=== PATIENT | female | born 1995 | race African-American/Black ===

== ENCOUNTER 2017-05-29 14:21 | Emergency (ER) | payer BC ==
[~2017-05-29] VITALS: Ht 170.2 cm; Wt 64.0 kg
[2017-05-29 14:27] VITALS: TEMP 37.5; Ht 170.2 cm; Wt 64.0 kg
[2017-05-29] MEDS: SODIUM CHLORIDE 0.9% 1000ML 1,000 ML IV SCH ×3 (14:45→15:22)
[2017-05-29] MEDS ORDERED: BCPILLS PO (14:52)
--- NOTE | 2017-05-29 14:53 | EMERGENCY ROOM VISIT NOTE ---
History First contact with patient: 14:23 Chief Complaint: FLU LIKE SX Stated Complaint: NEAR SYNCOPE History of Present Illness The patient is a 21 year old female who was brought to the Emergency Room by ambulance due to a pre-syncopal episode. This occurred while she was sitting down in a meeting, and states that she felt her ears ringing and her body "felt light" which is what generally happens before she faints, so she left the room and was standing against the wall in the hallway, where she then collapsed onto the floor. She denies LOC, states she did not hit her head, and that there was no seizure-like activity. She has been unwell since Sunday, with general body aches, fever, chills, malaise, sore throat, rhinorrhea, cough productive of green sputum, but no blood , and nausea. She states she has occasional chest pain with coughing, but not otherwise, and denies shortness of breath, palpitations, vomiting, abdominal pain, or headaches. She states she has not had much of an appetite since these symptoms started. She has no past medical history, and denies being a smoker, or the use of alcohol or recreational drug. Her only medical is the OCP, and she states she was meant to start her new packet yesterday, but did not. Review of Systems See HPI for pertinent positives & negatives. A total of 10 systems reviewed and were otherwise negative. Past Medical/Surgical History Medical Problems: (1) Hypokalemia (2) No Known Active Medical Problems (3) Non-cardiac chest pain (4) Non-cardiac chest pain (5) Stress-related problem (6) Stress-related problem (7) Toe pain Social History Smoking Status: Never Smoker Alcohol Use: none Drug Use: none Marital Status: single Occupation Status: student Current/Historical Medications Scheduled Control Pills ( Control Pills), 1 TAB PO DAILY Physical Exam Vital Signs Date Time Temp Pulse Resp B/P (MAP) Pulse Ox O2 Delivery O2 Flow Rate FiO2 05/29/17 16:25 105 141/86 103 143/94 116 147/87 05/29/17 14:27 37.5 118 20 136/84 99 Room Air Physical Exam HEENT: Head - normocephalic and atraumatic. Pupils are equal, round, and reactive to light. Extraocular eye muscles are intact and sclera are anicteric. Ears - bilaterally patent canals with noninjected tympanic membranes and no evidence of hemotympanum. Nose - moist nasal mucosa without discharge. Mouth - moist buccal mucosa. Oropharynx is erythematous with exudate. Tonsils absent. Neck: Supple; no JVD, nuchal rigidity, bilateral submandibular lymphadenopathy, or auscultated bruits. Heart: Regular rate and rhythm. There is a normal S1 and S2 with no murmurs, clicks, or gallops appreciated. Lungs: Clear to auscultation bilaterally with no wheezes, rales, or rhonchi. Abdomen: Soft, completely nontender, nondistended, with good bowel sounds. There are no palpable pulsatile masses or hepatosplenomegaly. There is no guarding, rigidity, or rebound noted. Extremities: No evidence of cyanosis, clubbing, or edema. There are easily palpable peripheral pulses. Neuro:The patient is awake and alert, oriented to day, time, and place. Muscle strength is 5/5 in all 4 extremities. The patient has equal waste and batting waste chopper strength and equal pedal push and pull. There are no cerebellar signs. Medical Decision & Procedures ER Provider Diagnostic Interpretation: CHEST 2 VIEWS ROUTINE CLINICAL HISTORY: Productive cough. COMPARISON STUDY: Chest radiograph October 10, 2015. FINDINGS: Lung volumes are normal. No pneumothorax or pleural effusion is present. Pulmonary vascularity is normal. Lungs are clear. Cardiomediastinal silhouette is normal. IMPRESSION: No acute cardiopulmonary findings. Laboratory Results 05/29/17 15:08 Red Blood Count 4.49, Mean Corpuscular Volume 81.7, Mean Corpuscular Hemoglobin 26.1, Mean Corpuscular Hemoglobin Concent 31.9, Mean Platelet Volume 9.8, Neutrophils (%) (Auto) 58.9, Lymphocytes (%) (Auto) 29.8, Monocytes (%) (Auto) 10.5, Eosinophils (%) (Auto) 0.2, Basophils (%) (Auto) 0.2, Neutrophils # (Auto ) 2.99, Lymphocytes # (Auto) 1.51, Monocytes # (Auto) 0.53, Eosinophils # (Auto ) 0.01, Basophils # (Auto) 0.01 05/29/17 15:08 Test 05/29/17 15:01 05/29/17 15:08 05/29/17 15:20 Influenza Type A Antigen POS for Influ A (NEG) Influenza Type B Antigen Neg for Influ B (NEG) White Blood Count 5.07 K/uL (4.8-10.8) Red Blood Count 4.49 M/uL (4.2-5.4) Hemoglobin 11.7 g/dL (12.0-16.0) Hematocrit 36.7 % (37-47) Mean Corpuscular Volume 81.7 fL (80-100) Mean Corpuscular Hemoglobin 26.1 pg (25-34) Mean Corpuscular Hemoglobin Concent 31.9 g/dl (32-36) Platelet Count 292 K/uL (130-400) Mean Platelet Volume 9.8 fL (7.4-10.4) Neutrophils (%) (Auto) 58.9 % Lymphocytes (%) (Auto) 29.8 % Monocytes (%) (Auto) 10.5 % Eosinophils (%) (Auto) 0.2 % Basophils (%) (Auto) 0.2 % Neutrophils # (Auto) 2.99 K/uL (1.4-6.5) Lymphocytes # (Auto) 1.51 K/uL (1.2-3.4) Monocytes # (Auto) 0.53 K/uL (0.11-0.59) Eosinophils # (Auto) 0.01 K/uL (0-0.5) Basophils # (Auto) 0.01 K/uL (0-0.2) RDW Standard Deviation 45.8 fL (36.4-46.3) RDW Coefficient of Variation 15.3 % (11.5-14.5) Immature Granulocyte % (Auto) 0.4 % Immature Granulocyte # (Auto) 0.02 K/uL (0.00-0.02) Anion Gap 8.0 mmol/L (3-11) Est Creatinine Clear Calc Drug Dose 93.5 ml/min Estimated GFR () 103.1 Estimated GFR (Non- 88.9 BUN/Creatinine Ratio 9.6 (10-20) Calcium Level 8.8 mg/dl (8.5-10.1) Thyroid Stimulating Hormone (TSH) 0.171 uIu/ml (0.300-4.500) Monoscreen NEG (NEG) Urine Color YELLOW Urine Appearance CLEAR (CLEAR) Urine pH 6.0 (4.5-7.5) Urine Specific [place] 1.009 (1.000-1.030) Urine Protein NEG (NEG) Urine Glucose (UA) NEG (NEG) Urine Ketones NEG (NEG) Urine Occult Blood NEG (NEG) Urine Nitrite NEG (NEG) Urine Bilirubin NEG (NEG) Urine Urobilinogen NEG (NEG) Urine Leukocyte Esterase NEG (NEG) Urine Test NEG (NEG) Medications Administered Medications (Trade) Dose Ordered Sig/Radhika Route Start Time Stop Time Status Last Admin Dose Admin Sodium Chloride 1,000 ml @ 999 mls/hr Q1H1M IV 05/29/17 14:45 06/28/17 14:44 05/29/17 15:22 999 MLS/HR ED Course 14:28: The patient was seen in room A3 14:40: The case was discussed with Dr. Valdez 14:45: The patient was seen with Dr. Valdez 14:59: Rapid strep was negative. NS bolus ordered 15:25: Patient reassessed, no complaints at this time. 15:37: Patient tested positive for influenza A. Isolation precautions started at this time 16:27: Patient reassessed. I explained that she tested positive for influenza, but that she is outside the window for Tamiflu treatment. I also told her that her TSH was low (0.171) and advised follow up with her PCP regarding further evaluation. She states she has no personal or family history of thyroid disease. She states she does not have a PCP here, but is agreeable to seeing someone new. Medical Decision The patient is a 21 year old female who was brought to the Emergency Room by ambulance due to a pre-syncopal episode, on a background of being unwell since Sunday, with productive cough, fever, chills, sore throat, rhinorrhea and nausea. Differentials include viral illness, strep throat, infectious mononucleosis, influenza, pneumonia. She tested positive for Influenza A. She was counselled on the fact that she was outside the window for Tamiflu treatment, and told to drink plenty of fluids and rest. Her TSH was found to be low at 0.171. An appointment was made for her to follow up with a PCP later this week to further investigate this, as well as ensure her symptoms were resolving. Impression Primary Impression: Influenza A Departure Information Dispostion Home / Self-Care Referrals [facility] (PCP) Patient Instructions My [facility] Additional Instructions You were diagnosed with Influenza, which is the flu. Unfortunately, you were outside the window for intervention with medication. Please rest, drink plenty of fluids, and use tylenol or ibuprofen to help alleviate your symptoms. If you find your symptoms are worsening, you develop chest pain, or shortness of breath , or have another episode of fainting or almost fainting, please seek medical attention. As well, while you were here, your thyroid stimulating hormone was found to be low, and we recommend following up with your primary care provider to further investigate this. Resident Tracking Resident Involvement: Resident Care Provided Care Provided: Adult ED
[2017-05-29 15:42] LABS: BASO % 0.2 %; BASO ABS # 0.01 K/uL (0-0.2); COMPLETE YES; EOS % 0.2 %; HEMATOCRIT 36.7 % (37-47); IG% 0.4 %; LYMPH % 29.8 %; LYMPH ABS # 1.51 K/uL (1.2-3.4); MEAN CELL VOLUME 81.7 fL (80-100); MEAN CORPUSCULAR HEMOGLOBIN 26.1 pg (25-34); MEAN CORPUSCULAR HGB CONC 31.9 g/dl (32-36); MEAN PLATELET VOLUME 9.8 fL (7.4-10.4); MONO % 10.5 %; NEUT % 58.9 %; PLATELET COUNT 292 K/uL (130-400); RED BLOOD COUNT 4.49 M/uL (4.2-5.4); WHITE BLOOD COUNT 5.07 K/uL (4.8-10.8)
[2017-05-29 15:49] LABS: BUN/CREATININE RATIO 9.6 (10-20); CALCIUM 8.8 mg/dl (8.5-10.1); CREATININE 0.91 mg/dl (0.60-1.20); POTASSIUM 3.4 mmol/L (3.5-5.1)
[2017-05-29 15:49] LABS: URINE APPEARANCE CLEAR (CLEAR); URINE BILIRUBIN NEG (NEG); URINE COLOR YELLOW; URINE NITRITE NEG (NEG); URINE SPECIFIC GRAVITY 1.009 (1.000-1.030); UROBILINOGEN NEG (NEG)
[2017-05-29 15:52] LABS: PREG INTERNAL NEGATIVE QC NEG CLEAR BACKGROUND; PREG INTERNAL POSITIVE QC POS CONTROL LINE
[2017-05-29 15:59] LABS: THYROID STIMULATING HORMONE 0.171 uIu/ml (0.300-4.500)
[2017-05-29 16:00] LABS: MANUAL MICROSCOPIC REQUIRED? NO; REVIEW REQ? NO
--- NOTE | 2017-05-29 16:23 | DIAGNOSTIC IMAGING REPORT ---
CHEST 2 VIEWS ROUTINE CLINICAL HISTORY: Productive cough. COMPARISON STUDY: Chest radiograph October 10, 2015. FINDINGS: Lung volumes are normal. No pneumothorax or pleural effusion is present. Pulmonary vascularity is normal. Lungs are clear. Cardiomediastinal silhouette is normal. IMPRESSION: No acute cardiopulmonary findings. Electronically signed by: Johnathon Addison M.D. 05/29/2017 4:21 PM Dictated Date/Time: 05/29/2017 4:21 PM
--- NOTE | 2017-05-29 16:50 | EMERGENCY ROOM VISIT NOTE ---
History Report prepared by [place]: Tracie Alfonso Under the Supervision of: Dr. Dwight Valdez M.D. First contact with patient: 14:23 Chief Complaint: FLU LIKE SX Stated Complaint: NEAR SYNCOPE History of Present Illness The patient is a 21 year old female who presents to the Emergency Room with complaints of an episode of near syncope occurring [employer]. The patient states that she has felt generally unwell with flu-like symptoms for the past 3 days. She reports subjective fevers, chills, sore throat, nausea, rhinorrhea, and a productive cough. She has some chest pain with coughing but otherwise denies any chest pain. Today the patient was in a meeting at work when her ears started ringing and she felt like she was going to pass out. She leaned against a wall and just slid down the wall onto the ground. The patient denies any LOC. She denies any seizure-like activity. The patient denies headache, rash, shortness of breath, abdominal pain, and diarrhea. She denies any sick contacts. She reports that she has not been eating much lately. The patient was brought to the ED by ambulance. Source of History: patient Onset: [employer] Position: other (global) Quality: other (near syncope) Timing: other (episode) Modifying Factors (Relieving): other (time) Associated Symptoms: + fevers, + chills, + sorethroat, + cough, + nausea, No LOC, No headache, No SOB, No abdominal pain, No diarrhea, No rash Review of Systems See HPI for pertinent positives & negatives. A total of 10 systems reviewed and were otherwise negative. Past Medical & Surgical Medical Problems: (1) Hypokalemia (2) No Known Active Medical Problems (3) Non-cardiac chest pain (4) Non-cardiac chest pain (5) Stress-related problem (6) Stress-related problem (7) Toe pain Family History No pertinent history stated. Social History Smoking Status: Never Smoker Alcohol Use: none Drug Use: none Marital Status: single Occupation Status: student Current/Historical Medications Scheduled Control Pills ( Control Pills), 1 TAB PO DAILY Allergies Coded Allergies: Amoxicillin (Verified Adverse Reaction, Mild, diarrhea, 05/29/17) Clavulanic Acid (Verified Adverse Reaction, Mild, diarrhea, 05/29/17) Physical Exam Vital Signs Date Time Temp Pulse Resp B/P (MAP) Pulse Ox O2 Delivery O2 Flow Rate FiO2 05/29/17 16:25 105 141/86 103 143/94 116 147/87 05/29/17 14:27 37.5 118 20 136/84 99 Room Air Physical Exam Constitutional: Vital signs reviewed. Eyes: Pupils are equal round reactive to light. Conjunctiva are noninjected. ENT: Mild erythema to posterior oropharynx. Mucous membranes are moist. Neck supple without meningeal signs. Respiratory: Clear to auscultation bilaterally. Breath sounds are equal bilaterally. Cardiovascular: Tachycardic rate and regular rhythm. No rubs or gallops. GI: Soft, nondistended and nontender. Bowel sounds are present. No organomegaly. Musculoskeletal: No peripheral edema. No lower extremity tenderness. Integumentary: No cyanosis. Neurological: The patient is awake and alert. No focal deficits. Psychiatric: Normal affect. Medical Decision & Procedures ER Provider Diagnostic Interpretation: Radiology results as stated below per my review and the radiologist's interpretation: CHEST 2 VIEWS ROUTINE CLINICAL HISTORY: Productive cough. COMPARISON STUDY: Chest radiograph October 10, 2015. FINDINGS: Lung volumes are normal. No pneumothorax or pleural effusion is present. Pulmonary vascularity is normal. Lungs are clear. Cardiomediastinal silhouette is normal. IMPRESSION: No acute cardiopulmonary findings. Electronically signed by: Johnathon Addison M.D. 05/29/2017 4:21 PM Dictated Date/Time: 05/29/2017 4:21 PM Laboratory Results 05/29/17 15:08 Red Blood Count 4.49, Mean Corpuscular Volume 81.7, Mean Corpuscular Hemoglobin 26.1, Mean Corpuscular Hemoglobin Concent 31.9, Mean Platelet Volume 9.8, Neutrophils (%) (Auto) 58.9, Lymphocytes (%) (Auto) 29.8, Monocytes (%) (Auto) 10.5, Eosinophils (%) (Auto) 0.2, Basophils (%) (Auto) 0.2, Neutrophils # (Auto ) 2.99, Lymphocytes # (Auto) 1.51, Monocytes # (Auto) 0.53, Eosinophils # (Auto ) 0.01, Basophils # (Auto) 0.01 05/29/17 15:08 Test 05/29/17 15:01 05/29/17 15:08 05/29/17 15:20 Influenza Type A Antigen POS for Influ A (NEG) Influenza Type B Antigen Neg for Influ B (NEG) White Blood Count 5.07 K/uL (4.8-10.8) Red Blood Count 4.49 M/uL (4.2-5.4) Hemoglobin 11.7 g/dL (12.0-16.0) Hematocrit 36.7 % (37-47) Mean Corpuscular Volume 81.7 fL (80-100) Mean Corpuscular Hemoglobin 26.1 pg (25-34) Mean Corpuscular Hemoglobin Concent 31.9 g/dl (32-36) Platelet Count 292 K/uL (130-400) Mean Platelet Volume 9.8 fL (7.4-10.4) Neutrophils (%) (Auto) 58.9 % Lymphocytes (%) (Auto) 29.8 % Monocytes (%) (Auto) 10.5 % Eosinophils (%) (Auto) 0.2 % Basophils (%) (Auto) 0.2 % Neutrophils # (Auto) 2.99 K/uL (1.4-6.5) Lymphocytes # (Auto) 1.51 K/uL (1.2-3.4) Monocytes # (Auto) 0.53 K/uL (0.11-0.59) Eosinophils # (Auto) 0.01 K/uL (0-0.5) Basophils # (Auto) 0.01 K/uL (0-0.2) RDW Standard Deviation 45.8 fL (36.4-46.3) RDW Coefficient of Variation 15.3 % (11.5-14.5) Immature Granulocyte % (Auto) 0.4 % Immature Granulocyte # (Auto) 0.02 K/uL (0.00-0.02) Anion Gap 8.0 mmol/L (3-11) Est Creatinine Clear Calc Drug Dose 93.5 ml/min Estimated GFR () 103.1 Estimated GFR (Non- 88.9 BUN/Creatinine Ratio 9.6 (10-20) Calcium Level 8.8 mg/dl (8.5-10.1) Thyroid Stimulating Hormone (TSH) 0.171 uIu/ml (0.300-4.500) Monoscreen NEG (NEG) Urine Color YELLOW Urine Appearance CLEAR (CLEAR) Urine pH 6.0 (4.5-7.5) Urine Specific [place] 1.009 (1.000-1.030) Urine Protein NEG (NEG) Urine Glucose (UA) NEG (NEG) Urine Ketones NEG (NEG) Urine Occult Blood NEG (NEG) Urine Nitrite NEG (NEG) Urine Bilirubin NEG (NEG) Urine Urobilinogen NEG (NEG) Urine Leukocyte Esterase NEG (NEG) Urine Test NEG (NEG) Laboratory results as reviewed by me. Medications Administered Medications (Trade) Dose Ordered Sig/Radhika Route Start Time Stop Time Status Last Admin Dose Admin Sodium Chloride 1,000 ml @ 999 mls/hr Q1H1M IV 05/29/17 14:45 06/28/17 14:44 05/29/17 15:22 999 MLS/HR ECG Indication: syncope Rate (beats per minute): 107 Rhythm: sinus tachycardia Findings: no ectopy, other (no QT prolongation) ED Course 1423: The patient was evaluated in room A3. A complete history and physical exam was performed. 1445: NSS 1000 ml @ 999 mls/hr IV 1639: I reassessed the patient at this time. She is feeling better and resting comfortably. I discussed the results and treatment plan with the patient. I answered all pertaining questions that she had. She expressed understanding and verbalized agreement. The patient will be discharged home. Medical Decision This is a 21-year-old female who presents with flulike symptoms and near syncope. Differential diagnosis includes influenza, viral syndrome, mononucleosis, strep pharyngitis, metabolic derangement, orthostatic hypotension , dehydration. I did perform a limited focused review of portions of the patient's old chart on the electronic medical record. The patient has had no recent pertinent visits to this hospital. I did evaluate the patient as noted above. IV access was established. I did order and personally review the patient's 12-lead EKG and chest x-ray as described above. EKG does not show any evidence of preexcitation, QT prolongation or ectopy. Her chest x-ray does not show any evidence of pneumonia. Rapid strep test is negative. I did order and review the patient's blood work as noted in the electronic medical record. Flu test is positive for influenza A. She was given normal saline IV. She was informed of her test results. Arrangements were made for outpatient follow up in the patient was discharged in good condition. Resident Physician Supervision Note: I did evaluate and examine this patient myself. I did guide management for the patient. I agree with the resident's Dr. Marcos Quarles assessment as discussed. Please see the resident's dictation for further details. Medication Reconcilliation Current Medication List: was personally reviewed by me Blood Pressure Screening Patient's blood pressure: Elevated blood pressure Blood pressure disposition: Elevated BP felt to be situational Impression Primary Impression: Influenza A Additional Impression: Near syncope Scribe Attestation The scribe's documentation has been prepared under my direct and personally reviewed by me in its entirety. I confirm that the note above accurately reflects all work, treatment, procedures, and medical decision making performed by me. Departure Information Dispostion Home / Self-Care Referrals [facility] (PCP) Patient Instructions My [facility] Problem Qualifiers
[2017-05-29 17:35] VITALS: BP 139/92; PULSE 112; O2SAT 99
== END 2017-05-29 17:36 | disposition home or self-care (01) ==
LOC: EDBD 14:21 → C.EDA 14:22
DX: J11.1 Influenza due to unidentified influenza virus with other respiratory manifestations (principal); R55 Syncope and collapse; R00.0 Tachycardia, unspecified; Z88.1 Allergy status to other antibiotic agents; Z88.8 Allergy status to other drugs, medicaments and biological substances

== ENCOUNTER 2017-09-06 05:47 | Emergency (ER) | payer BC ==
[~2017-09-06] VITALS: Ht 177.8 cm; Wt 66.0 kg
[~2017-09-06 05:47] MED LIST: BCPILLS PO
[2017-09-06 05:56] VITALS: TEMP 36.9; Ht 177.8 cm; Wt 66.0 kg
--- NOTE | 2017-09-06 06:02 | EMERGENCY ROOM VISIT NOTE ---
History Report prepared by Clayton: Chris Peerz Under the Supervision of: Dr. Bertha Joshi D.O. First contact with patient: 05:49 Chief Complaint: SYNCOPE (NEAR SYNCOPE) Stated Complaint: SYNCOPE History of Present Illness The patient is a 21 year old female who presents to the Emergency Room with complaints of an episode of syncope occurring this morning. The patient states that she woke up at around 0500 this morning to take a hot shower. She notes that that last thing she remembers was being in the shower, turning off the water, and that she hit the left side of her head when she passed out. She reports that she does not know what she hit her head on. The patient states that her episode may be caused by her control. She notes that when she does not get enough sleep while on control, she becomes nauseous when she wakes up. She notes that the side effects have not caused her to lose consciousness in the past but she believes that it is possible. She reports that she has passed out in the past. The patient states that she knew that she was going to pass out tonight, but did not think that it would happen as quickly as it did. She also complains of diarrhea after she passed out, but denies any abdominal pain. She notes that her last period was 6 weeks ago. Source of History: patient Onset: this morning Position: other (global) Quality: other (syncope) Timing: other (an episode) Associated Symptoms: + diarrhea, No abdominal pain Review of Systems See HPI for pertinent positives & negatives. A total of 10 systems reviewed and were otherwise negative. Past Medical & Surgical Medical Problems: (1) Hypokalemia (2) Iron deficiency anemia (3) Non-cardiac chest pain (4) Non-cardiac chest pain (5) Stress-related problem (6) Stress-related problem (7) Toe pain Family History No pertinent family history stated. Social History Smoking Status: Never Smoker Alcohol Use: none Drug Use: none Marital Status: single Housing Status: lives with roommate Occupation Status: student Current/Historical Medications Scheduled Control Pills ( Control Pills), 1 TAB PO DAILY Allergies Coded Allergies: Amoxicillin (Verified Adverse Reaction, Mild, diarrhea, 05/29/17) Clavulanic Acid (Verified Adverse Reaction, Mild, diarrhea, 05/29/17) Physical Exam Vital Signs Date Time Temp Pulse Resp B/P (MAP) Pulse Ox O2 Delivery O2 Flow Rate FiO2 09/06/17 05:56 36.9 99 20 121/63 100 Room Air 09/06/17 05:55 100 Physical Exam HEENT: Head - normocephalic and atraumatic Pupils are equal, round, and reactive to light. Extraocular eye muscles are intact, and sclera are anicteric. There is no obvious traumatic head injury to her forehead or temporal region where she believes she struck her head. Nose - moist nasal mucosa without discharge. Mouth - moist buccal mucosa. Oropharynx is nonerythematous and there is no tonsillar exudate or edema noted. Neck: Supple; no JVD, nuchal rigidity, cervical lymphadenopathy, or auscultated bruits. Heart: Regular rate and rhythm. There is a normal S1 and S2 with no murmurs, clicks, or gallops appreciated. Lungs: Clear to auscultation bilaterally with no wheezes, rales, or rhonchi. Abdomen: Soft, completely nontender, nondistended, with good bowel sounds. There are no palpable pulsatile masses or hepatosplenomegaly. There is no guarding, rigidity, or rebound noted. Extremities: No evidence of cyanosis, clubbing, or edema. There are easily palpable peripheral pulses. Skin: warm and dry with good turgor and no rashes. Neuro: The patient is fully awake and alert. She is easily able follow commands. Medical Decision & Procedures Laboratory Results 09/06/17 06:05 09/06/17 06:05 Test 09/06/17 06:05 09/06/17 06:26 Red Blood Count 3.98 M/uL (4.2-5.4) Mean Corpuscular Volume 84.9 fL (80-100) Mean Corpuscular Hemoglobin 27.4 pg (25-34) Mean Corpuscular Hemoglobin Concent 32.2 g/dl (32-36) RDW Standard Deviation 50.7 fL (36.4-46.3) RDW Coefficient of Variation 16.2 % (11.5-14.5) Mean Platelet Volume 9.6 fL (7.4-10.4) Anion Gap 8.0 mmol/L (3-11) Est Creatinine Clear Calc Drug Dose 126.6 ml/min Estimated GFR () 136.8 Estimated GFR (Non- 118.0 BUN/Creatinine Ratio 9.6 (10-20) Calcium Level 8.6 mg/dl (8.5-10.1) Urine Color DK YELLOW Urine Appearance CLOUDY (CLEAR) Urine pH 5.5 (4.5-7.5) Urine Specific [place] 1.026 (1.000-1.030) Urine Protein 2+ (NEG) Urine Glucose (UA) NEG (NEG) Urine Ketones TRACE (NEG) Urine Occult Blood NEG (NEG) Urine Nitrite NEG (NEG) Urine Bilirubin NEG (NEG) Urine Urobilinogen NEG (NEG) Urine Leukocyte Esterase NEG (NEG) Urine WBC (Auto) 5-10 /hpf (0-5) Urine RBC (Auto) 0-4 /hpf (0-4) Urine Hyaline Casts (Auto) 5-10 /lpf (0-5) Urine Epithelial Cells (Auto) >30 /lpf (0-5) Urine Bacteria (Auto) 2+ (NEG) Urine Renal Epithelial Cells /lpf (0-5) Urine Pathogenic Casts 0-3 GRANULAR CASTS /lpf (0) Urine Mucus PRESENT (NONE PRSENT) Urine Test NEG (NEG) Laboratory results per my review. ECG Indication: syncope Rate (beats per minute): 92 Rhythm: normal sinus Findings: no acute ischemic change, no ectopy ED Course 0553: Past medical records reviewed. The patient was evaluated in room A3. A complete history and physical exam was performed. A twelve-lead EKG was obtained as described above. Labs were drawn as above. 0600: The patient's electrocardiogram was interpreted by me. 0643: I reevaluated the patient. She is drinking water. She became tearful because she does not remember what happened or how long she was out. She states that she has a history of iron deficiency anemia. She notes that she had stopped taking her iron some time ago because of the constipation. She also stopped eating meat 1 year ago. 0655: Upon reevaluation, the patient is stable. I discussed findings and results with her. The patient asked if I was going to get a CAT scan of her brain since she struck her head. I reviewed the risks and benefits of CAT scanning with regards to radiation. I explained to the patient that she had no signs of trauma to her head and no altered mental status at this time. However , she was warned that if she developed an increasing headache, vomiting, visual changes, or any neurological symptoms, she would need to return to the emergency department for CT scanning. She verbalized agreement of the treatment plan. The patient was discharged home. Medical Decision The patient is a 21 year old female who presents to the Emergency Room with complaints of an episode of syncope occurring this morning. Differential diagnoses include: dehydration, syncope, medication side effects, and cardiac dysrhythmia. Lab Results Show: White count normal. Hemoglobin 10.9. Normal renal function. Glucose 114. Potassium 3.3 Urine negative. Urinalysis positive for trace ketones. 2+ Bacteria. 5-10 WBCs. Greater than 30 epithelial cells. This is a 21-year-old male patient presents to the emergency department after having a syncopal event in the shower. The patient seems somewhat dehydrated and is more anemic than usual. These could've contributed to her syncopal event. I started some time talking to her about the importance of immediately sitting down to the ground when she feels as if she is going to pass out. She seemed to understand this. She drink liquids while here in the emergency department. I encouraged her to continue to do so at home. I also suggested that the patient take foods high in iron. I've asked her to follow-up with [facility] with regards to her anemia. She was instructed to return to the emergency department she developed any worsening head pain, photophobia, or an altered mental status. Head Trauma GCS Score: 15 Blood Pressure Screening Patient's blood pressure: Normal blood pressure Blood pressure disposition: Did not require urgent referral Impression Primary Impression: Syncope Additional Impression: Anemia Scribe Attestation The scribe's documentation has been prepared under my direction and personally reviewed by me in its entirety. I confirm that the note above accurately reflects all work, treatment, procedures, and medical decision making performed by me. Departure Information Dispostion Home / Self-Care Referrals [facility] (PCP) Forms HOME CARE DOCUMENTATION FORM, IMPORTANT VISIT INFORMATION Patient Instructions My [facility] Additional Instructions Rest. Take foods high in iron. Consider restarting iron supplement Take plenty of clear liquids to prevent dehydration If you feel as if you might pass out...you must sit down immediately. Follow up at [facility] for anemia Problem Qualifiers Primary Impression: Syncope Syncope type: vasovagal syncope Qualified Codes: R55 - Syncope and collapse Additional Impression: Anemia Anemia type: iron deficiency Iron deficiency anemia type: unspecified iron deficiency Qualified Codes: D50.9 - Iron deficiency anemia, unspecified
[2017-09-06 06:21] LABS: HEMATOCRIT 33.8 % (37-47); HEMOGLOBIN 10.9 g/dL (12.0-16.0); MEAN CELL VOLUME 84.9 fL (80-100); MEAN CORPUSCULAR HEMOGLOBIN 27.4 pg (25-34); MEAN CORPUSCULAR HGB CONC 32.2 g/dl (32-36); MEAN PLATELET VOLUME 9.6 fL (7.4-10.4); PLATELET COUNT 302 K/uL (130-400); RED CELL DISTRIBUTION WIDTH CV 16.2 % (11.5-14.5); RED CELL DISTRIBUTION WIDTH SD 50.7 fL (36.4-46.3); WHITE BLOOD COUNT 7.93 K/uL (4.8-10.8)
[2017-09-06 06:40] LABS: CALCIUM 8.6 mg/dl (8.5-10.1); CREATININE 0.72 mg/dl (0.60-1.20); POTASSIUM 3.3 mmol/L (3.5-5.1)
[2017-09-06 07:01] VITALS: BP 126/70; PULSE 98; O2SAT 98
== END 2017-09-06 07:02 | disposition home or self-care (01) ==
LOC: C.EDA 05:47 → EDBD 05:47 → C.EDA 07:02
DX: R55 Syncope and collapse (principal); D50.9 Iron deficiency anemia, unspecified; E86.0 Dehydration; Z79.3 Long term (current) use of hormonal contraceptives